=== PATIENT | male | born 1980 | race Hispanic/Latino ===

== ENCOUNTER 2021-09-20 05:45 | Day surgery (SDC) | payer OTHER ==
[~2021-09-20] VITALS: Ht 167.6 cm; Wt 66.0 kg
[~2021-09-20 05:45] MED LIST: CETIRIZINE HCL5 MG PO; FISH OIL + D31 EACH PO; LEVOTHYROXINE13 MCG PO
[2021-09-20] MEDS ORDERED: LIPITOR20 MG (06:07)
--- NOTE | 2021-09-20 07:42 | NUR ---
09/20/21 0741 Daylin Tanner 5280-PATIENT ARRIVED TO PACU ON 10L MASK PLACED ON 6L MASK RR EVEN. ORAL AIRWAY IN PLACE NONAROUSABLE. LAYING LEFT LATERAL ABDOMEN SOFT. IVF INFUSING. SR.
--- NOTE | 2021-09-20 21:47 | OR ---
[facility] [address], [place] [address] Signed DATE OF OPERATION: 09/20/2021 SURGEON: Samantha Calix MD PREOPERATIVE DIAGNOSES: History of perianal fissure and possible fistula treated in the past, questionable left fistula in ANO. 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 PROCEDURE: Total colonoscopy to cecum with biopsy of ileocecal valve, mucosal hypertrophy, and rectum. ANESTHESIA: Intravenous sedation; propofol infusion, Samantha Graves CRNA INDICATION: This 40-year-old dark-skinned man is a prisoner at [facility] and was recommended by Dr. Dotson at [facility] to undergo colonoscopy. 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 More recently, he has noted a similar finding of a "bump" that has developed. He notes the swelling increases and decreases from time to time. He does not have drainage currently. It was recommended by Dr. Dotson, physician at [facility] at that time to undergo colonoscopy. He understands the risk of bleeding, infection, and perforation related to colonoscopy and wished to proceed. FINDINGS: I saw no evidence of perianal fistula. He did have some external hemorrhoidal changes. The colon was essentially normal. There was mild proctitis and some hypertrophy of mucosa at the ileocecal valve. There was no evidence of polyps, cancer, or diverticulosis. DESCRIPTION OF PROCEDURE: The patient was brought to the endoscopy suite and placed in the lateral decubitus position, given intravenous sedation with propofol infusional technique by the under cutter given his advanced ASA class. Digital rectal examination was normal. I saw no sign of fistula in ANO, drainage or other issue. An Olympus video colonoscope was passed in the rectum and manipulated throughout the colon ultimately intubating the Electronically Signed By: SAMANTHA CALIX MD 09/20/21 2147 PATIENT NAME: FABIOLA ROSARIO OPERATIVE REPORT DATE OF : 78 REPORT #: [id number] PHYSICIAN: SAMANTHA CALIX MD PCP: NEFTALY DIAZ REPORT IS CONFIDENTIAL AND NOT TO BE RELEASED WITHOUT AUTHORIZATION [facility] [address], [place] [address] Signed cecum itself. The ileocecal valve showed an area of mucosal hypertrophy. Narrow band imaging did not confirm it to be an adenoma per se. It was biopsied nevertheless. The scope was then withdrawn and examination throughout showed no sign of abnormality. In the rectum, there was mild inflammatory change, probably prep related. A biopsy was obtained nevertheless. External hemorrhoidal changes were noted as well. The scope was removed and the patient was taken to the recovery room in good condition. CONCLUDING DIAGNOSIS: No sign of colonic disease or current fistula in ANO. Did have external hemorrhoidal changes. PLAN: We would recommend a high-fiber diet or Metamucil. If recurrent symptoms of concern, happy to see him again in the assisted clinic. He will return to the ongoing care now of ESDRAS Huang. MD JUAN ANTONIO Ambrosio/CHON /[id number] cc: ESDRAS Jules Copies: NEFTALY DIAZ ~ Electronically Signed By: SAMANTHA CALIX MD 09/20/21 2147 PATIENT NAME: JETT CHRISTENSENFABIOLA OPERATIVE REPORT DATE OF : 78 REPORT #: [id number] PHYSICIAN: SAMANTHA CALIX MD PCP: NEFTALY DIAZ REPORT IS CONFIDENTIAL AND NOT TO BE RELEASED WITHOUT AUTHORIZATION
--- NOTE | 2021-09-21 11:56 | PATH ---
[facility] [address], [place] [address] Signed SPECIMEN(S): A ILEOCECAL VALVE BX SPECIMEN(S): B RECTUM SPECIMEN SOURCE: A. ILEOCECAL VALVE BX B. RECTUM CLINICAL HISTORY: Colonoscopy. Anal fissure, pain, mild proctitis, mucosal lesion ileocecal valve. FINAL PATHOLOGIC DIAGNOSIS: A. Colon, ileocecal valve, biopsy: - Colonic mucosa with mild lamina propria hemorrhage and capillary congestion. - Negative for active, chronic, or microscopic colitis. - Negative for dysplasia or malignancy. - See comment. B. Rectum, biopsy: - Colorectal mucosa with focal mild lamina propria hemorrhage. - Negative for active or chronic proctitis. - Negative for dysplasia or malignancy. - See comment. COMMENT: Regarding specimens A and B: Lamina propria hemorrhage is seen, however no features of ischemic colitis such as lamina propria hyalinization or mucosal injury is identified. The findings are nonspecific and could be secondary to biopsy procedure. NAL:cml:C2NR MICROSCOPIC EXAMINATION: Histologic sections of all submitted blocks are examined by light microscopy. These findings, together with the gross examination, support the pathologic diagnosis. GROSS DESCRIPTION: Two specimens are received in two containers labeled with "FS." A. The specimen, labeled "FS, 1," and designated on the requisition "ileocecal valve biopsy," is received in formalin and consists of four fragments of pink-clemens tissue (0.1-0.2 cm in greatest dimension). The specimen is submitted entirely in cassette (A1). PATIENT NAME: FABIOLA ROSARIO PATHOLOGY DATE OF : 78 REPORT #: [id number] PHYSICIAN: SRINIVASAN LAINEZ PCP: NEFTALY DIAZ REPORT IS CONFIDENTIAL AND NOT TO BE RELEASED WITHOUT AUTHORIZATION [facility] [address] [place] [address] Signed B. The specimen, labeled "FS, 2," and designated on the requisition "rectum biopsy," is received in formalin and consists of one fragment of pink-clemens tissue (0.2 cm in greatest dimension). The specimen is submitted entirely in cassette (B1). AC (under the direct supervision of a pathologist) The Gross Description was prepared using a voice recognition system. The report was reviewed for accuracy; however, sound-alike word errors, addition and/or deletions may occur. If there is any question about this report, please contact Client Services. PERFORMING LABORATORY: The technical component was performed by [facility] [address] (CLIA# [id number]). [facility] [address] [place] [address] (CLIA# [id number]). Diagnostician: Tess Mejia MD Pathologist Electronically Signed 09/21/2021 Copies: ~ PATIENT NAME: FABIOLA ROSARIO PATHOLOGY DATE OF : 78 REPORT #: [id number] PHYSICIAN: SRINIVASAN LAINEZ PCP: NEFTALY DIAZ REPORT IS CONFIDENTIAL AND NOT TO BE RELEASED WITHOUT AUTHORIZATION
== END 2021-09-20 08:20 | disposition home or self-care (01) ==
LOC: OPS 05:45 → DS 05:45 → OPS 06:45
PROVIDERS: ATTEND Surgery
PROC: 0DBP8ZX Excision of Rectum, Via Natural or Artificial Opening Endoscopic, Diagnostic (ICD-10-PCS; 2021-09-20)
PROC: 0DBC8ZX Excision of Ileocecal Valve, Via Natural or Artificial Opening Endoscopic, Diagnostic (ICD-10-PCS; principal; 2021-09-20 06:45)
DX: K62.5 Hemorrhage of anus and rectum (principal); K62.89 Other specified diseases of anus and rectum; K64.4 Residual hemorrhoidal skin tags; E03.9 Hypothyroidism, unspecified; Z86.19 Personal history of other infectious and parasitic diseases; Z86.16 Personal history of COVID-19; Z20.822 Contact with and (suspected) exposure to COVID-19
CPT/HCPCS: 80053; 85025; 87502; C9803; J2704; J7121; U0003